=== PATIENT | female | born 1960 | race Caucasian/White ===

== ENCOUNTER 2018-06-26 01:26 | Outpatient (CLI) | payer OTHER, SELFPAY ==
[2018-06-26 10:11] LABS: HCT 39.1 % (36.0-46.0); Mean Corp. HGB Concentration 33.2 g/dL (32.0-36.0); Mean Corpuscular Hemoglobin 27.6 pg (27.0-33.0); Mean Platelet Volume 10.7 fL (8.0-11.0); Platelet Count 279 x1000/uL (130-400); RBC 4.71 m/cumm (4.00-5.20); RBC Distribution Width 13.3 % (11.7-14.6); White Blood Cell Count 5.17 k/cumm (4.4-10.8)
[2018-06-26 11:18] LABS: ALT 39 U/L (12-78); AST 26 U/L (15-37); Albumin 3.7 g/dL (3.4-5.0); Alkaline Phosphatase 80 U/L (46-116); Anion Gap 7.7 mmol/L (3-11); BUN 16 mg/dL (7-18); Bilirubin, Total 0.3 mg/dL (0.2-1.0); CO2 30.3 mmol/L (21.0-32.0); CREATININE 0.99 mg/dL (0.55-1.02); Calcium 9.4 mg/dL (8.5-10.1); Chloride 103 mmol/L (98-107); Cholesterol 239 mg/dL (50-200); Estimated GFR 57.41 (mL/min/1.73m2); Glucose 109 mg/dL (70-100); HDL Cholesterol 74 mg/dL (40-60); LDL CHOLESTEROL 149 mg/dL (<100); Potassium 4.6 mmol/L (3.5-5.1); Sodium 141 mmol/L (136-145); Total Protein 6.6 g/dL (6.4-8.2); Triglyceride 72 mg/dL (30-150)
[2018-06-28 06:41] LABS: COMMENT (LAB VIEW ONLY) 93.86 mg/dL; Microalb ug/mg Crea 9.9 ug/mg Cr
[2018-06-28 15:41] LABS: Hemoglobin A1C 8.5 % (4.5-6.2)
== END 2018-06-26 01:46 ==
PROVIDERS: PCP Nurse Practitioner; Visit Provider Nurse Practitioner
DX: E78.5 Hyperlipidemia, unspecified (principal); E11.65 Type 2 diabetes mellitus with hyperglycemia
CPT/HCPCS: 36415; 80053; 80061; 83721; 85027; 82043; 82570; 83036

== ENCOUNTER 2018-11-04 00:43 | Outpatient (CLI) | payer OTHER, SELFPAY ==
--- NOTE | 2018-11-04 15:30 | DI.MAMMO_ITS ---
SYMPTOM/DIAGNOSIS: FAMILY HISTORY BREAST CANCER BILATERAL SCREENING MAMMOGRAM: Comparison is made with exams from 2015 and 2018. The breasts are composed mainly of fatty density tissue. There is a stable area of nodularity in the left breast. No suspicious masses or suspicious microcalcifications or changes are seen. IMPRESSION: Category 2, negative mammogram with benign findings. Yearly screening mammography is recommended. Breast density category A. MQSA ASSESSMENT OF FINDINGS: Negative with benign findings. Category 2. Patient will receive a letter notifying them of these results. BI-RAD category A. The breasts are almost entirely fatty.
== END 2018-11-04 01:03 ==
PROVIDERS: PCP Nurse Practitioner; Visit Provider Nurse Practitioner
DX: Z12.31 Encounter for screening mammogram for malignant neoplasm of breast (principal); Z80.3 Family history of malignant neoplasm of breast
CPT/HCPCS: 77063; 77067

== ENCOUNTER 2019-05-20 09:07 | Day surgery (SDC) | payer OTHER, SELFPAY ==
[2019-05-20 09:11] VITALS: BP 106/75; PULSE 80; RESP 18; TEMP 36.7; O2SAT 99
[2019-05-20] MEDS: Lactated Ringers 1,000 ML 80 ML IV (09:38)
--- NOTE | 2019-05-20 11:05 | W.PM.HP.N ---
Date of service: 05/20/19 Time of Service: 11:05 Assessment and Plan Assessment and plan (1) Colon cancer screening: Status: Acute Assessment and plan: I advised colonoscopy. The procedure was described including the risks of perforation with need for surgery or bleeding. Prep instructions discussed. Patient agrees to proceed. History of Present Illness Narrative: 59 y/o female with history of Type 1 DM presents for her first screening colonoscopy. She denies a family history of colon cancer. She denies any changes in bowel habits including bloody or black tarry stools, diarrhea or constipation. She denies constitutional symptoms. Denies use of marijuana or any other recreational or illegal drugs. She reports her average fasting blood sugars are 143. Her last HbA1c 8.1 on 12/30/18. She denies chest pain, palpitations, dyspnea or dyspnea with exertion. She participates in aerobic exercise 3-6x/wk for 30-60 mins. She denies prior history or family history of adverse reactions or complications with anesthesia. She denies having any metal implanted in her body. Review of Systems All systems reviewed & are unremarkable except as noted in HPI and below PFSH Medical History Diabetes mellitus (Chronic) Type I Eczema (Acute) Surgical History History of hysterectomy (Chronic) Tubal Ligation, Laparoscopic (04/13/01) Family History Mother Essential hypertension Diabetes Depression Heart disease Hyperlipidemia Thyroid disorder Social History Smoking/Tobacco Use Status: Former Tobacco Use Quit Date: 04/13/83 Alcohol Intake: current Alcohol Intake frequency: a few times a week Alcohol type: wine Drug use: Never Substance use type: does not use Do you feel safe at home: Yes Do you feel safe in your relationship?: Yes Meds Home Medications and Allergies Home Medications Medication Instructions Recorded Confirmed Type ibuprofen 200 mg PO PRN PRN 08/20/12 05/20/19 History loratadine 10 mg PO PRN PRN 08/20/12 05/20/19 History metformin 500 mg tablet,extended See Rx Instructions PO BID #360 tab 07/05/18 05/20/19 Rx release 24hr pen needle, diabetic 31 gauge x #200 each 10/11/18 04/14/19 Rx 5/16 blood sugar diagnostic #150 strip 01/20/19 04/14/19 Rx insulin aspart U-100 100 unit/mL 12 unit SC QID ml 02/28/19 05/20/19 History (3 mL) subcutaneous pen insulin glargine [Lantus Solostar 20 unit SUB-Q HS MDD 25 05/04/19 05/20/19 History U-100 Insulin] Allergies Allergy/AdvReac Type Severity Reaction Status Date / Time Sulfa (Sulfonamide Allergy rash, fever Verified 05/20/19 09:13 Antibiotics) topiramate AdvReac Unknown MENTAL Verified 05/20/19 09:13 CHANGES, VAGUE Exam Const General: healthy appearing and not in acute distress Nutritional Appearance: well nourished Orientation: oriented x3 HENMT Head: normal to inspection Eyes Sclera: sclerae normal Pupils: PERRL Neck Neck: no lymphadenopathy Resp Effort & Inspection: normal respiratory effort Auscultation: clear to auscultation bilaterally and no wheezes Cardio Rate: regular rate Rhythm: regular rhythm GI Inspection: non-distended Palpation: soft, no hepatosplenomegaly, no hernias and nontender Skin General skin exam: no rashes or lesions noted Neuro General: alert Cognition: normal cognition Extrem General: normal to inspection Psych Affect: normal affect Attitude: cooperative Results Last Vital Signs Temp 98.1 F 05/20/19 09:11 Pulse 80 05/20/19 09:11 Resp 18 05/20/19 09:11 BP 106/75 05/20/19 09:11 Pulse Ox 99 05/20/19 09:11
--- NOTE | 2019-05-20 11:56 | W.PM.DSUDISC ---
Discharge Plan Disposition Patient Disposition: HOME Condition: Good Discharge Details Reason For Visit: Colonoscopy Attending Provider: Magdalena Pimentel Primary Care Provider: Danae Dela Cruz Home Meds and New Rx's Prescriptions: Continued insulin aspart U-100 [Novolog Flexpen U-100 Insulin] 100 unit/mL (3 mL) insulin pen 12 unit SC QID RF: 0 ibuprofen 200 MG tablet 200 mg PO PRN PRNRF: 0 loratadine 10 MG tablet 10 mg PO PRN PRNRF: 0 metformin 500 mg tablet extended release 24hr See Rx Instructions PO BID Qty: 360 RF: 3 (DME) pen needle, diabetic [Pen Needle] 31 gauge x 5/16 needle 1 ea Sub-Q TID Qty: 200 RF: 12 (DME) FreeStyle Lite Strips Strip 1 ea Miscellaneous BID Qty: 150 RF: 11 Lantus Solostar U-100 Insulin 100 unit/mL (3 mL) insulin pen 20 unit Sub-Q HS MDD 25 RF: 0 Discharge Instructions Additional Instructions: Findings: Your colonoscopy was normal. Follow up: Plan for routine screening in 10 years or sooner if symptoms arise. Please call if you develop: fevers >101.5 Nausea or Vomiting Abdominal pain that is not transient DAY SURGERY UNIT POST COLONOSCOPY INSTRUCTIONS 1. Because there will be medication in your system for the next 24 hours, you may feel a little sleepy. Your coordination will be affected. Therefore: a. Do not drive or operate dangerous equipment for 24 hours. b. Do not drink alcohol beverages for 24 hours (not even beer). c. Plan to go home and rest for the day. 2. Generally there are no restrictions on your activity after a day or so has gone by, but you may feel a bit fatigued for a few days. 3 After you arrive home you may have a light meal and return to a normal diet as you can tolerate it without feeling sick to your stomach. 4. After surgery, you may feel pain or discomfort. This should be only transient, but if it persists please contact your doctor. 5. If there are any questions regarding the findings of your procedure, please feel free to contact your doctor. 6. If you are unable to contact your doctor with a problem, contact the hospital at [phone]. 7. Continue all your regular medications unless directed otherwise. I understand the above instructions and have no questions. Signature of Patient or Responsible Adult Escort Date/Time Name of Responsible Adult Escort Signature of Nurse Date/Time Activity:: Activity as Tolerated Diet:: As Tolerated Discharge Orders Discharge Orders: Discharge Order (Routine); Ordered 05/20/19 Ordered By: Magdalena Pimentel DS: Diagnosis Discharge Diagnosis (1) Colon cancer screening: Status: Acute
[2019-05-20 12:16] VITALS: PULSE 78; RESP 18; TEMP 36.7; O2SAT 95
--- NOTE | 2019-05-20 15:10 | ROE_ITS ---
DATE OF PROCEDURE: May 20, 2019 PREOPERATIVE DIAGNOSIS: Screening. POSTOPERATIVE DIAGNOSIS: Normal colon. PROCEDURE: Colonoscopy. SURGEON: Magdalena Pimentel M.D. ANESTHESIA: General. INDICATIONS: This is a 59-year-old woman who presents for her first screening colonoscopy. She is a symptomatic and has no family history of colon cancer. PROCEDURE: She was placed in the left Burton position. Propofol was titrated to sedation. Digital re ctal examination revealed no abnormalities. The scope was advanced to the cecum without difficulty. The ileocecal valve and appendiceal orifice were clearly identified. Her prep was good. The scope was slowly withdrawn with no abnormalities seen within the ascending, transverse, descending, sigmoid colon or rectum, including on retroflex view. She tolerated the procedure well and was stable to re covery. She will need a follow-up screening again in ten years or sooner if symptoms indicate. cc: Danae Dela Cruz N.P.
== END 2019-05-20 12:33 | disposition home or self-care (01) ==
PROVIDERS: PCP Nurse Practitioner; Visit Provider Surgery
PROC: 0DJD8ZZ Inspection of Lower Intestinal Tract, Via Natural or Artificial Opening Endoscopic (ICD-10-PCS; CPT 45378; principal; 2019-05-20 10:30)
DX: Z12.11 Encounter for screening for malignant neoplasm of colon (principal); E10.9 Type 1 diabetes mellitus without complications; Z79.4 Long term (current) use of insulin
CPT/HCPCS: 45378; NC

== ENCOUNTER 2019-11-22 01:28 | Outpatient (CLI) | payer OTHER, SELFPAY ==
--- NOTE | 2019-11-22 08:30 | DI.MAMMO_ITS ---
EXAM: MG MAMMO SCREENING CLINICAL HISTORY: screening,Z12.39 TECHNIQUE: Bilateral full field digital CC and MLO mammographic images were obtained with 3D tomosyn thesis and utilizing computer aided detection (CAD). COMPARISON: Available for comparison. FINDINGS: Masses/Architectural Distortion: Stable bilateral nodularity. Microcalcifications: No suspicious pleomorphic-type are seen. Skin Thickening/Nipple Retraction: None. IMPRESSION: 1. No significant interval change with no specific features of malignancy noted. 2. Unless there is more urgent need, screening mammography is recommended, as per [employer] guidelines. BI-RADS Category 2 - Benign Findings Breast Density - Category A - Almost entirely fatty A negative radiographic report should not delay biopsy if a dominant or clinically suspicious mass is present. Up to ten percent of cancers are not identified on mammography. A negative report may reinforce clinical impression. Adenosis and dense breasts may obscure an underlying neoplasm. False positive reports average 6 to 10%. Patient will receive a letter notifying them of these results.
== END 2019-11-22 01:48 ==
PROVIDERS: PCP Nurse Practitioner; Visit Provider Nurse Practitioner
DX: Z12.31 Encounter for screening mammogram for malignant neoplasm of breast (principal)
CPT/HCPCS: 77063; 77067

== ENCOUNTER 2020-05-01 03:30 | Outpatient (CLI) | payer OTHER, SELFPAY ==
[2020-05-01 07:55] LABS: Bilirubin Negative (Negative); Blood Small (Negative); Clarity Clear (Clear); Glucose Negative (Negative); Ketones Negative (Negative); Leukocyte Esterase Negative (Negative); Nitrite Negative (Negative); Urobilinogen 0.2 EU/dL (Up TO 0.2)
[2020-05-01 08:05] LABS: Hemoglobin A1C 7.8 % (<5.7)
[2020-05-01 08:05] LABS: COMMENT (LAB VIEW ONLY) 44.33 mg/dL; Microalb ug/mg Crea 18.7 ug/mg Cr
[2020-05-01 08:08] LABS: ALT 34 U/L (14-59); AST 19 U/L (15-37); Alkaline Phosphatase 73 U/L (46-116); BUN 15 mg/dL (7-18); Bilirubin, Total 0.3 mg/dL (0.2-1.0); Calcium 9.1 mg/dL (8.5-10.1); Calculated LDL 148 mg/dL (<100); Chloride 101 mmol/L (98-107); Cholesterol 250 mg/dL (<200); Estimated GFR 56.37 (mL/min/1.73m2); Glucose 196 mg/dL (74-106); HDL Cholesterol 83 mg/dL (40-60); Potassium 4.1 mmol/L (3.5-5.1); Sodium 138 mmol/L (136-145); Total Protein 6.9 g/dL (6.4-8.2); Triglyceride 98 mg/dL (<150)
[2020-05-01 08:08] LABS: Bacteria Many HPF (Negative); C & S Indicated? C&S Done As Ordered; Casts Negative LPF (Negative); Crystals Negative HPF (Negative); Epithelial Cells Rare HPF (Negative); Mucus Trace (Negative)
[2020-05-01 10:44] LABS: HCT 38.4 % (36.0-46.0); HGB 12.6 g/dL (11.2-15.7); MCH 27.5 pg (27.0-33.0); MCHC 32.8 % (32.0-36.0); MCV 83.7 fL (80-95); MPV 10.9 fL (8.0-11.0); Platelet Count 287 10^3/uL (130-400); RBC 4.59 10^6/uL (3.93-5.22); RDW 12.8 % (11.7-14.6); RDW-SD 38.7 fL; WBC 5.96 10^3/uL (4.4-10.8)
== END 2020-05-01 03:50 ==
PROVIDERS: PCP Nurse Practitioner; Visit Provider Nurse Practitioner
DX: E10.9 Type 1 diabetes mellitus without complications (principal); E78.5 Hyperlipidemia, unspecified; N89.8 Other specified noninflammatory disorders of vagina
CPT/HCPCS: 36415; 80053; 80061; 85027; 87077; 81003; 81015; 82043; 82570; 83036; 87086; 87186

== ENCOUNTER 2020-08-09 02:12 | Outpatient (CLI) | payer OTHER, SELFPAY ==
[2020-08-09 08:55] LABS: Bilirubin Negative (Negative); Blood Negative (Negative); Clarity Clear (Clear); Glucose Negative (Negative); Ketones Negative (Negative); Leukocyte Esterase Negative (Negative); Nitrite Negative (Negative); Specific Gravity 1.015 (1.005-1.025); Urobilinogen 0.2 EU/dL (Up TO 0.2)
== END 2020-08-09 02:13 | disposition home or self-care (01) ==
LOC: LBO 02:12
PROVIDERS: PCP Nurse Practitioner; Visit Provider Nurse Practitioner
DX: N89.8 Other specified noninflammatory disorders of vagina (principal); R82.998 Other abnormal findings in urine
CPT/HCPCS: 87077; 81003; 87086; 87186

== ENCOUNTER 2020-11-13 16:36 | Outpatient (REF) | payer OTHER, SELFPAY | END 2020-11-13 16:37 | disposition home or self-care (01) | LOC: LBN 16:36 | PROVIDERS: PCP Nurse Practitioner; Visit Provider Nurse Practitioner | DX: R82.90 Unspecified abnormal findings in urine (principal) | CPT/HCPCS: 87086 ==

== ENCOUNTER 2020-11-21 03:36 | Outpatient (CLI) | payer OTHER, SELFPAY ==
[2020-11-21 08:02] LABS: HCT 40.3 % (36.0-46.0); MCH 27.1 pg (27.0-33.0); MCHC 32.3 % (32.0-36.0); MPV 10.4 fL (8.0-11.0); Platelet Count 291 10^3/uL (130-400); RDW-SD 39.9 fL; WBC 5.32 10^3/uL (4.4-10.8)
[2020-11-21 08:03] LABS: Bilirubin Negative (Negative); Blood Negative (Negative); Clarity Clear (Clear); Glucose Negative (Negative); Ketones Negative (Negative); Leukocyte Esterase Negative (Negative); Nitrite Positive (Negative); Specific Gravity 1.015 (1.005-1.025); Urobilinogen 0.2 EU/dL (Up TO 0.2); pH 7.5 (5-8)
[2020-11-21 08:17] LABS: Hemoglobin A1C 7.9 % (<5.7)
[2020-11-21 08:21] LABS: Bacteria Moderate HPF (Negative); C & S Indicated? Yes; Casts Negative LPF (Negative); Crystals Negative HPF (Negative); Epithelial Cells Rare HPF (Negative); Mucus Negative (Negative); RBC Negative HPF (0-2); WBC 0-2 HPF (0-5)
[2020-11-21 08:40] LABS: ALT 28 U/L (14-59); AST 18 U/L (15-37); Albumin 3.8 g/dL (3.4-5.0); Alkaline Phosphatase 73 U/L (46-116); Anion Gap 1.9 mmol/L (3-11); BUN 15 mg/dL (7-18); Bilirubin, Total 0.3 mg/dL (0.2-1.0); CO2 31.1 mmol/L (21.0-32.0); Calcium 9.3 mg/dL (8.5-10.1); Calculated LDL 147 mg/dL (<100); Chloride 105 mmol/L (98-107); Cholesterol 247 mg/dL (<200); Estimated GFR 56.37 (mL/min/1.73m2); Glucose 161 mg/dL (74-106); HDL Cholesterol 81 mg/dL (40-60); Potassium 4.2 mmol/L (3.5-5.1); Sodium 138 mmol/L (136-145); Total Protein 6.6 g/dL (6.4-8.2); Triglyceride 95 mg/dL (<150)
== END 2020-11-21 03:37 | disposition home or self-care (01) ==
LOC: LBO 03:36
PROVIDERS: PCP Nurse Practitioner; Visit Provider Nurse Practitioner
DX: E10.9 Type 1 diabetes mellitus without complications (principal); E78.5 Hyperlipidemia, unspecified; E11.9 Type 2 diabetes mellitus without complications; R82.998 Other abnormal findings in urine
CPT/HCPCS: 36415; 80053; 80061; 85027; 87077; 81003; 81015; 83036; 87086; 87186

== ENCOUNTER 2020-12-12 02:01 | Outpatient (CLI) | payer OTHER, SELFPAY ==
--- NOTE | 2020-12-12 08:15 | DI.MAMMO_ITS ---
Exam(s) MAMMO SCREENING EXAM: MAMMO SCREENING CLINICAL HISTORY: screening,Z12.39 TECHNIQUE: Bilateral full field digital CC and MLO mammographic images were obtained with 3D tomosyn thesis and utilizing computer aided detection (CAD). COMPARISON: Available for comparison. FINDINGS: Masses/Architectural Distortion: There is a small focal asymmetry in the upper posterior left breast not present on the prior examination. There are stable bilateral breast nodules present. Microcalcifications: No suspicious pleomorphic-type are seen. Skin Thickening/Nipple Retraction: None. IMPRESSION: 1. New small focal asymmetry in the upper posterior left breast on the MLO view. 2. Spot compression views requested for further evaluation. BI-RADS Category 0 - Assessment Incomplete: Need additional imaging evaluation Breast Density - Category B - Scattered areas of fibroglandular density Breast density category C or D implies that the patient has dense breast tissue. Dense breast tissue is very common and is not abnormal but dense breast tissue can make it harder to find cancer on a ma mmogram. Also, dense breast tissue may increase their breast cancer risk. This information about the result of the mammogram report was provided to the patient to raise their awareness. Use this report when you speak with the patient about their risks for breast cancer, which includes their family hist ory. At that time, you may recommend for more screening tests (Ultrasound or MRI) as they might be us eful based on their risk. A negative radiographic report should not delay biopsy if a dominant or clinically suspicious mass is present. Up to ten percent of cancers are not identified on mammography. A negative report may reinforce clinical impression. Adenosis and dense breasts may obscure an underlying neoplasm. False positive reports average 6 to 10%. Patient will receive a letter notifying them of these results.
== END 2020-12-12 02:21 ==
PROVIDERS: PCP Nurse Practitioner; Visit Provider Nurse Practitioner
DX: Z12.31 Encounter for screening mammogram for malignant neoplasm of breast (principal); R92.8 Other abnormal and inconclusive findings on diagnostic imaging of breast
CPT/HCPCS: 77063; 77067

== ENCOUNTER 2020-12-31 00:44 | Outpatient (CLI) | payer OTHER, SELFPAY ==
--- NOTE | 2020-12-31 | DI.MAMMO_ITS ---
Exam(s) MG MAMMO SCREEN CALL BACK UNI EXAM: MAMMO SCREEN CALL BACK UNI-left CLINICAL HISTORY: F/U MAMMO, NEW FOCAL ASYMMETRY UPPER POST LT BREAST. TECHNIQUE: Unilateral spot mammographic images obtained with 3D tomosynthesisand utilizing computer aided detection (CAD). . COMPARISON: Prior mammograms were reviewed. This additional imaging was performed due to findings described on the recent screening mammogram of 12/12/2020. FINDINGS: Additional mammographic views performed todayrenders this area less concerning and similar in appeara nce to prior mammograms. IMPRESSION: Benign findings. No radiographic evidence of malignancy in left breast. The patient was informed of these findings and recommendations prior to leaving the department today. BI-RADS Category 2 - Benign Findings Breast Density - Category B - Scattered areas of fibroglandular density Breast density Category C or D implies that the patient has dense breast tissue. Dense breast tissue can make it harder to find cancer on a mammogram. Dense breast tissue is also associated with an incr eased risk of breast cancer. This information about the result of the mammogram report was provided to the patient to raise their awareness. Use this report when you speak with the patient about their risks for breast cancer, which includes their family history. At that time, you may recommend additional screening tests (Ultrasoun d or MRI) as these tests may add significant information. A negative radiographic report should not delay biopsy if a dominant or clinically suspicious mass is present. Up to ten percent of cancers are not identified on mammography. A negative report may reinforce clinical impression. Adenosis and dense breasts may obscure an underlying neoplasm. False positive reports average 6 to 10%. Patient will receive a letter notifying them of these results.
== END 2020-12-31 01:04 ==
PROVIDERS: PCP Nurse Practitioner; Visit Provider Nurse Practitioner
DX: Z12.31 Encounter for screening mammogram for malignant neoplasm of breast (principal); R92.8 Other abnormal and inconclusive findings on diagnostic imaging of breast; N60.82 Other benign mammary dysplasias of left breast
CPT/HCPCS: 77063; 77067

== ENCOUNTER 2021-01-25 02:20 | Outpatient (CLI) | payer OTHER, SELFPAY ==
[2021-01-25 09:13] LABS: Hemoglobin A1C 7.9 % (<5.7)
[2021-01-25 09:50] LABS: Estimated GFR 56.37 (mL/min/1.73m2)
[2021-01-25 09:52] LABS: Microalb ug/mg Crea 2.3 ug/mg Cr
== END 2021-01-25 02:21 | disposition home or self-care (01) ==
LOC: LBO 02:20
PROVIDERS: PCP Nurse Practitioner; Visit Provider Nurse Practitioner Family
DX: E10.65 Type 1 diabetes mellitus with hyperglycemia (principal)
CPT/HCPCS: 36415; 82043; 82565; 82570; 83036

== ENCOUNTER 2021-02-05 03:26 | Outpatient (CLI) | payer OTHER, SELFPAY ==
[2021-02-05 11:22] LABS: Source Nasal/Nares
[2021-02-05 13:46] LABS: COVID-19 PCR Negative (Negative)
== END 2021-02-05 03:27 | disposition home or self-care (01) ==
LOC: LBO 03:26
PROVIDERS: PCP Nurse Practitioner; Visit Provider Surgery
DX: Z20.822 Contact with and (suspected) exposure to COVID-19 (principal); Z01.818 Encounter for other preprocedural examination
CPT/HCPCS: 87635

== ENCOUNTER 2021-02-06 06:10 | Day surgery (SDC) | payer OTHER, SELFPAY ==
[2021-02-06] VITALS (8 sets, daily range): BP systolic 102–139; BP diastolic 53–87; PULSE 60–74; RESP 12–23; TEMP 36.1–36.4; TEMPC 36.3; O2SAT 98–100; BMI 30.1
--- NOTE | 2021-02-06 06:30 | HPE_ITS ---
Date of service: 02/06/21 Time of Service: 06:31 Assessment and Plan Assessment and plan (1) Biliary colic: Status: Acute Assessment and plan: Yasmine Ramos is a 60-year-old female who clinically is having biliary colic. Her episodes have become more frequent. We discussed laparoscopic cholecystectomy as well as the risks and benefits. Her ultrasound does not show any inflammation at this point time and her biliary system is normal. This is certainly not a surgery that has to be done emergent. She does think that she would like to go ahead with surgery as her episodes are becoming more frequent. She will look at her work schedule and give us a call back to schedule her surgery. Risks, benefits, complications were reviewed with the patient in the office. Complications include but are not limited to bleeding, infection, injury to stomach, small bowel and large bowel, injury to the pancreas, injury to the common bile duct necessitating drainage and referral to tertiary center for r epair, bile leak, adverse reactions to the medications, complications of intubation including a sore throat or injury to the uvula, PR, stroke and even . Questions were entertained and answered to her satisfaction and she wished to proceed. No guarantees were given or implied. Laparoscopic cholecystectomy with possible intraoperative cholangiogram History of Present Illness Narrative: Yasmine is here today because she has been having some right upper quadrant/upper abdominal discomfort for years. Over the last few months if has become more frequent. She describes the pain as pressure. It is not always related to food. She did have an ultrasound which showed a 1.6 cm stone in the neck of the gallbladder. It was mobile. There were no signs of inflammation on the ultrasound and her biliary system looked normal. I suspect that because her stone is immobile that this is why she is having pain on and off. Sometimes the pain can last 3 to 4 hours. She has not had any nausea or vomiting. She has not had any changes in bowel habits. Her past medical history is significant for type 1 diabetes. She started out with a hemoglobin A1c of over 12 and has been able to bring it down to 7.6. She is quite strict with her diet and has been increasing her exercise. She does not have any chest pain or shortness of breath with exertion. NO new changes in her health since she was seen in the office Review of Systems Cardiovascular Cardiovascular: Denies chest pain, Denies chest pain at rest, Denies irregular heart rhythm, Denies dyspnea and Denies dyspnea on exertion Respiratory Respiratory: Denies cough, Denies dyspnea and Denies dyspnea on exertion Gastrointestinal Gastrointestinal: Reports as per HPI, Denies dyspepsia and Denies heartburn Genitourinary Genitourinary: Denies dysuria, Denies urinary incontinence and Denies urinary urgency Endocrine Endocrine: Reports system reviewed and no additional complaints, except as documented Hematologic/Lymphatic Hematologic/Lymphatic: Denies easy bruising and Denies lymphadenopathy [facility] Medical History (Updated 02/06/21 @ 06:33 by Juju Peters MD) Benign paroxysmal positional vertigo (08/06/11) Diabetes mellitus Type I Dyslipidemia (03/14/14) declines statin rx (indicated for diabetes, but CV risk 3.4%/10 yrs; 39% lifetime) Eczema Paroxysmal atrial tachycardia (08/06/11) Sinusitis Statin declined Uterine leiomyoma (08/06/11) Surgical History History of hysterectomy Tubal Ligation, Laparoscopic (04/13/01) Family History Mother Essential hypertension Diabetes Depression Heart disease Hyperlipidemia Thyroid disorder Social History Smoking/Tobacco Use Status: Former Tobacco Use Quit Date: 04/13/83 Smoking risk assessment performed?: Yes Alcohol Intake: current Alcohol Intake frequency: a few times a week Alcohol type: wine Drug use: Never Substance use type: does not use Do you feel safe at home: Yes Do you feel safe in your relationship?: Yes Meds Allergies and Home Medications Allergies Allergy/AdvReac Type Severity Reaction Status Date / Time Sulfa (Sulfonamide Allergy rash, fever Verified 02/06/21 06:30 Antibiotics) topiramate AdvReac Unknown MENTAL Verified 02/06/21 06:30 CHANGES, VAGUE Home Medications Medication Instructions Recorded Confirmed Type ibuprofen 200 mg PO PRN PRN 08/20/12 02/05/21 History loratadine 10 mg PO PRN PRN 08/20/12 02/05/21 History blood sugar diagnostic #150 strip 02/07/20 12/21/20 Rx metformin 500 mg tablet,extended 500 mg PO BID #360 tab 05/07/20 02/05/21 Rx release 24hr insulin glargine 100 unit/mL (3 20 unit SUB-Q HS #3 ml MDD 25 06/21/20 02/05/21 Rx mL) subcutaneous pen pen needle, diabetic 31 gauge x #200 each 11/13/20 12/21/20 Rx 08/26 insulin aspart U-100 [Novolog 1 - 6 unit SC QID MDD 50u 02/05/21 02/05/21 History Flexpen U-100 Insulin] Exam Const General: healthy appearing and comfortable Resp Effort & Inspection: normal respiratory effort Auscultation: clear to auscultation bilaterally Cardio Rate: regular rate Rhythm: regular rhythm Heart Sounds: no click, no gallops and no murmurs Results Last Vital Signs Temp 97.5 F L 02/06/21 06:21 Pulse 74 02/06/21 06:21 Resp 16 02/06/21 06:21 BP 134/69 02/06/21 06:21 Pulse Ox 99 02/06/21 06:21
--- NOTE | 2021-02-06 06:33 | ROE_ITS ---
Date of service: 02/06/21 Time of Service: 08:10 Operative Note Operative Note DATE OF PROCEDURE: 02/06/21 PRE-OP DIAGNOSIS: Biliary colic POST-OP DIAGNOSIS: same PROCEDURE: Laparoscopic Cholecystectomy SURGEON: Juju Peters PLANNING ASSISTANT: Yolanda Bergman ANESTHESIA TYPE: General LMA/ETT (Hiram Guthrie CRNA) Refer to Anesthesia Record ESTIMATED BLOOD LOSS: 15 PATHOLOGY: other (Gallblader and contents) COMPLICATIONS: None Patient was transported to: PACU Patient's condition: stable Implants: None Indications: Yasmine Ramos is a 60-year-old female who clinically is having biliary colic. Her episodes have become more frequent. We discussed laparoscopic cholecystectomy as well as the risks and benefits. Her ultrasound does not show any inflammation at this point time and her biliary system is normal. This is certainly not a surgery that has to be done emergent. She does think that she would like to go ahead with surgery as her episodes are becoming more frequent. She will look at her work schedule and give us a call back to schedule her surgery. Risks, benefits, complications were reviewed with the patient in the office. Complications include but are not limited to bleeding, infection, injury to stomach, small bowel and large bowel, injury to the pancreas, injury to the common bile duct necessitating drainage and referral to tertiary center for repair, bile leak, adverse reactions to the medications, complications of intubation including a sore throat or injury to the uvula, NV, stroke and even . Questions were entertained and answered to her satisfaction and she wished to proceed. No guarantees were given or implied. Laparoscopic cholecystectomy with possible intraoperative cholangiogram Findings: One large stone mild inflammation Procedure Description: After informed consent was obtained the patient was brought to the operating room, placed in a supine position and monitors were applied. SCDs were applied to her lower extremities and she was placed under general anesthesia and intubated without difficulty. Her abdomen was then prepped and draped in a sterile fashion using ChloraPrep. At this point a timeout was done and the patient's name, date of , procedure type, allergies to medications, metal in her body, antibiotic and DVT prophylaxis, and fire risk was assessed. At this point Exparel mixed 50/50 with 0.25% Bupivocaine was injected just above the umbilicus into the dermis and subcutaneous tissue. A 5 mm incision was made with an 11 blade. The skin next to the incision was grasped with penetrating towel clamps and while pulling up on the skin a 5 mm port was placed under direct visualization. The abdomen was insuflated and then 3 more ports were placed. A 12 mm port was placed in the subxiphoid area and two 5 mm ports were placed in the right upper quadrant. The liver was inspected and looked normal. The patient's bed was then turned to the left and her head was brought up. The gallbladder was grasped at the body and pushed towards the right shoulder, this allowed me to visualize the neck of the gallbladder. The neck was grasped and pulled towards the right flank and down allowing me to visualize the lymph node. Using a [place] dissector with cautery the lymph node, and some fat was gently dissected away from the gallbladder. The cystic duct was identified it was normal in size. The duct was dissected 360 degrees using the [place] dissector in order for me to visualize its entrance into the gallbladder. Liver was noted behind it. There were no other structures right behind. Critical view was achieved. 3 clips were placed one proximal and 2 distal and the cystic duct was cut. The cystic artery was then identified and dissected 360 degrees. It was located just medial to the cystic duct. It was visualized going into the gallbladder. Once dissected 3 more clips were placed one proximal and 2 distal and the artery was cut. There was a acessory vessel noted and this was clipped as well and cut. Using the hook dissector the gallbladder was then dissected away from the liver bed and placed into an Endo Catch bag and pulled through the 12 mm port site. The 12 mm port was placed back into the abdomen under direct visualization. The liver bed was inspected no bleeding was noted. 20 cc of 0.25% Bupivocaine was injected above the liver to help with postoperative shoulder pain. The 12 mm and the 2 right upper quadrant ports were removed under direct visualization and no bleeding was noted from the fascia. The abdomen was deflated completely and lastly the umbilical port was removed. The skin was cleaned and the incisions were closed with 4-0 Vicryl. The skin was dried and skin affix was applied over the closed incisions. Needle, instrument and sponge counts were correct at the end of the case. At this point the patient was woken up, extubated and taken back to recovery in stable condition. There were no immediate complications.
--- NOTE | 2021-02-06 06:35 | PDOC.DSDIS_ITS ---
Discharge Plan Disposition Patient Disposition: HOME Condition: Good Discharge Details Reason For Visit: Laparoscopic Cholecystectomy Attending Provider: Juju Peters Primary Care Provider: Danae Dela Cruz Home Meds and New Rx's Prescriptions: New oxycodone 5 mg tablet 5 mg PO Q6H PRNQty: 14 RF: 0 Continued (DME) pen needle, diabetic [Pen Needle] 31 gauge x 5/16 needle 1 ea Sub-Q TID Qty: 200 RF: 12 ibuprofen 200 MG tablet 200 mg PO PRN PRNRF: 0 loratadine 10 MG tablet 10 mg PO PRN PRNRF: 0 (DME) FreeStyle Lite Strips Strip 1 ea Miscellaneous BID Qty: 150 RF: 11 metformin 500 mg tablet extended release 24hr 500 mg PO BID Qty: 360 RF: 3 Lantus Solostar U-100 Insulin 100 unit/mL (3 mL) insulin pen 20 unit Sub-Q HS MDD 25 Qty: 3 RF: 12 insulin aspart U-100 [Novolog Flexpen U-100 Insulin] 100 unit/mL (3 mL) insulin pen 2 - 12 unit SC QID MDD 50u RF: 0 acetaminophen 500 mg Tablet 500 mg PO Q6H PRNRF: 0 Discharge Instructions Instructions: Laparoscopic Cholecystectomy (DC) Additional Instructions: Activity at Home after surgery: 1. Make sure you walk outside at least 4 times per day 2. You should be able to climb a flight of stairs 3. No driving while in pain or taking pain medications 4. No strenuous activity or heavy lifting for 2 weeks (laparoscopic surgery) Diet, Nutrition, & wound healin. Avoid alcohol until after you are recovered from your surgery 2. Make sure to eat plenty of lean protein (meat, fish, eggs, cottage cheese, beans) 3. Eat a variety of fruits and vegetables. Eat plenty of high fiber foods to avoid constipation. 4. Drink plenty of liquids to stay hydrated and avoid constipation Pain Medications: 1. Tylenol 650mg every 6 hours as needed and Ibuprofen 600 mg every 6 hours as needed. You may alternate between the 2 medications every 3 hours 2. If a narcotic has been prescribed take as directed only for breakthrough pain For Constipation: 1. Take Milk of Magnesia or MiraLax as needed for constipation Other: 1. You may shower daily. Do not scrub the incisions 2. Do not soak the incisions for 1 week 3. You may alternate ice and heat as needed for pain and swelling Wound Care: 1. Keep the incisions clean and dry Please call our office if you develop: 1. Fevers >101.5 2. Nausea or Vomiting 3. Worsening pain 4. Redness and thick discharge from the wounds If after hours please call the Hospital at and ask to speak to the on-call surgeon Referrals: Juju Peters MD [ [facility] STAFF PHYSICIAN] - Activity:: as above Shower/Bathe:: 24 hours Diet:: low fat Discharge Orders Discharge Orders: Discharge Order (Routine); Ordered 02/06/21 Ordered By: Juju Peters DS: Diagnosis Discharge Diagnosis (1) Biliary colic: Status: Acute
[2021-02-06] MEDS: Lactated Ringers 1,000 ML 80 ML IV (06:52)
[2021-02-06] MEDS: Celecoxib 200 MG CAP PO (07:00)
--- NOTE | 2021-02-06 07:09 | W.ANESPRE ---
General Info Date of Service Date Performed: 02/06/21 Height: 5 ft 2 in Weight: 74.8 kg Body Mass Index (BMI): 30.1 Surgical Procedure: Operation Date: 02/06/21 07:40 Proposed Procedures Side Surgeon p Cholecystectomy Laparoscopic Juju Peters MD Meds Allergies and Home Medications Allergies Allergy/AdvReac Type Severity Reaction Status Date / Time Sulfa (Sulfonamide Allergy rash, fever Verified 02/06/21 06:30 Antibiotics) topiramate AdvReac Unknown MENTAL Verified 02/06/21 06:30 CHANGES, VAGUE Home Medication Medication Instructions Recorded ibuprofen 200 mg PO PRN PRN 08/20/12 loratadine 10 mg PO PRN PRN 08/20/12 blood sugar diagnostic #150 strip 02/07/20 metformin 500 mg tablet,extended 500 mg PO BID #360 tab 05/07/20 release 24hr insulin glargine 100 unit/mL (3 20 unit SUB-Q HS #3 ml MDD 25 06/21/20 mL) subcutaneous pen pen needle, diabetic 31 gauge x #200 each 11/13/2008/26 insulin aspart U-100 [Novolog 2 - 12 unit SC QID MDD 50u 02/05/21 Flexpen U-100 Insulin] acetaminophen 500 mg PO Q6H PRN 02/06/21 Current Visit Medications: Current Medications Generic Name Dose Route Start Last Admin Trade Name Freq PRN Reason Stop Dose Admin Celecoxib 200 mg 02/06/21 06:00 02/06/21 07:00 Celecoxib 200 Mg Cap PO 03/07/21 23:59 200 mg PREOP REMY Administration Ringer's Solution 1,000 mls @ 80 mls/hr 02/06/21 06:00 02/06/21 06:52 IV 03/07/21 23:59 80 mls/hr INFUSION ERMY Administration Cefazolin Sodium/Dextrose 2 gm in 50 mls @ 100 mls/hr 02/06/21 06:00 Ancef Duplex IVPB 03/07/21 23:59 PREOP REMY Ondansetron HCl 4 mg/ Sodium 52 mls @ 200 mls/hr 02/06/21 06:36 Chloride IVPB Q6H PRN PRN IV Miscellaneous Supplies 1 each 02/06/21 06:00 Iv Access IV 03/07/21 23:59 DIRECTED REMY Oxycodone HCl 5 mg 02/06/21 06:36 Oxycodone 5 Mg Tab PO Q3H PRN PRN Pain Sodium Chloride 0 ml 02/06/21 06:00 Normal Saline Flush 10 Ml Syr IV 03/07/21 23:59 PRN PRN Sodium Chloride 0 ml 02/06/21 06:00 Normal Saline 10 Ml Vial IJ 03/07/21 23:59 DIRECTED PRN Sterile Water 0 ml 02/06/21 06:00 Water,Injection,Sterile 10 Ml Vial IJ 03/07/21 23:59 DIRECTED PRN PFSH Active Problems Active Problems: Problem Status Onset Code Sinusitis J32.9 Benign paroxysmal positional vertigo 08/06/11 H81.10 Dyslipidemia 03/14/14 E78.5 Uterine leiomyoma 08/06/11 D25.9 Paroxysmal atrial tachycardia 08/06/11 I47.1 Biliary colic K80.50 Abnormal urine R82.90 RUQ pain R10.11 Statin declined Z53.20 Vaginal itching N89.8 Encounter for screening for other viral diseases Z11.59 Colon cancer screening Z12.11 Acquired absence of both cervix and uterus 03/13/15 Z90.710 Headache 08/06/11 R51 Hip pain, right 02/03/17 M25.551 Low back pain 08/06/11 M54.5 Obesity, unspecified 08/06/11 E66.9 Overweight (BMI 25.0-29.9) 08/06/11 E66.3 Type 1 diabetes mellitus E10.9 Medical History Medical History (Updated 02/06/21 @ 06:33 by Juju Peters MD) Benign paroxysmal positional vertigo (08/06/11) Diabetes mellitus Type I Dyslipidemia (03/14/14) declines statin rx (indicated for diabetes, but CV risk 3.4%/10 yrs; 39% lifetime) Eczema Paroxysmal atrial tachycardia (08/06/11) Sinusitis Statin declined Uterine leiomyoma (08/06/11) Surgical History Surgical History History of hysterectomy Tubal Ligation, Laparoscopic (04/13/01) Tobacco Smoking/Tobacco Use Status: Former Tobacco Use Alcohol Alcohol Intake: current Alcohol intake frequency: a few times a week Alcohol type: wine Substance Use Substance use: Never Substance use type: does not use Vital Signs and Lab Results Vital Signs Most Recent Vital Signs in EMR: Most Recent Vital Signs Temp Pulse Resp BP Pulse Ox 36.4 C L 74 16 134/69 99 02/06/21 06:21 02/06/21 06:21 02/06/21 06:21 02/06/21 06:21 02/06/21 06:21 Lab Results Blood Type / Crossmatch: No Data to Display Complete Blood Count: No Data to Display Complete Metabolic Panel: Creatinine 1.0 mg/dL (0.55-1.02) 01/25/21 08:26 01/25/21 Estimated GFR/1.73 m2 56.37 (mL/min/1.73m2) 01/25/21 08:26 01/25/21 Hemoglobin A1c 7.9 % (<5.7) H 01/25/21 08:26 01/25/21 Liver Function Panel: No Data to Display Coagulation Panel: No Data to Display Cardiac Panel: No Data to Display Arterial Blood Gas: No Data to Display Venous Blood Gas: No Data to Display Pancreas Panel: No Data to Display Thyroid Panel: No Data to Display Infectious Disease: Coronavirus (COVID-19)(PCR) Negative (Negative) 02/05/21 08:27 02/05/21 Coronavirus 2019 Source Nasal/Nares 02/05/21 08:27 02/05/21 Blood Cultures: No Data to Display Toxicology Panel: No Data to Display Anesthesia Assessment and Plan Anesthesia History Personal History: No History of Anesthesia Complications Family History: No Family History of Anesthesia Complications Exercise Tolerance Exercise Tolerance: Metabolic Equivalents>4 Pertinent Negatives Pertinent Negatives: No Symptoms of GERD, No Major Cardiovascular Symptoms or Complaints, No Major Pulmonary Symptoms or Complaints and No History of CVA/TIA Cardiac & Pulmonary Exam Cardiac Exam: Normal S1/S2 Heart Sounds Pulmonary Exam: Clear Bilateral Breath Sounds Airway Exam Known Difficult Airway: No Mallampati Class: 3 Mouth Opening: Normal (> 3cm) Thyromental Distance: Greater than 3 cm Neck Range of Motion: Full ROM Neck Circumference: Normal Teeth Condition: Normal Dentition Airway Comments: Crowns back lower both sides ASA Classification ASA Score: ASA 2 Emergency Case?: No NPO Status NPO Status: NPO Clears >2 hours, Solids >8 hours Anesthesia Plan Resuscitation Status: Full Code Anesthesia Technique: General Anesthesia Airway Planned: Endotracheal Tube Monitors Used: Standard Monitors
[2021-02-06] MEDS: ceFAZolin 2 GM/50 ML BAG IVPB (07:29)
[2021-02-06] MEDS: Bupivacaine 0.25% Pres-Free 30 ML VIAL (07:47)
[2021-02-06] MEDS: Bupivacaine LIPOSOME/PF 133 MG/10 ML VIAL IJ (07:47)
--- NOTE | 2021-02-06 08:05 | GB_PTH ---
PATIENT: Yasmine Ramos LOC: [facility] U#:[id number] AGE/SX: 60/F ROOM: RE02/06/[address]: Juju Peters MD : 1960 BED: DIS: 02/06/2021 SPEC #: [id number] RECD: 02/06/21 12:14 STATUS: ASHLEY REHenry #: [id number] DON: 02/06/21 08:[address]: Juju Peters DEPT: Surgical Specimen RECD BY: Clarisa Greenwood ENTERED: 02/06/21 12:15 SP TYPE: GB OTHR DR: Danae Dela Cruz APRN Tissues: 1 - GALLBLADDER Procedures: GROSS AND MICRO LEVEL 3 Comments: [id number]
--- NOTE | 2021-02-06 09:14 | W.ANESPOSTOP ---
Postoperative Evaluation Date, Time and Location Date Performed: 02/06/21 Time Performed: 09:14 Patient Location: Day Surgery Unit Vital Signs Most Recent Imported Vital Signs: Most Recent Vital Signs Temp Pulse Resp BP Pulse Ox 36.1 C L 63 14 139/87 100 02/06/21 08:58 02/06/21 08:58 02/06/21 08:58 02/06/21 08:58 02/06/21 08:58 Most Recent Manually Entered Vital Signs: Adult Blood Pressure: 126/75 Heart Rate: 60 Respirations: 12 Oxygen Saturation (%): 98 Temperature (C): 36.3 C Pain Score (0-10 Scale): 0 Pain Score Most Recent Pain Score: Most Recent Pain Score Pain Level 0 02/06/21 08:58 Assessment Mental Status: Awake (Alert & Oriented to Patient Baseline) Airway and Respiratory Function: Patent airway with normal (patient baseline) respiratory exam Cardiovascular Function: Hemodynamically Stable Hydration Status: Adequately Hydrated Nausea & Vomiting: No Nausea or Vomiting Pain: Pt. Denies Any Pain Peripheral Nerve Block: Patient did not receive a nerve block
== END 2021-02-06 10:28 | disposition home or self-care (01) ==
PROVIDERS: PCP Nurse Practitioner; Visit Provider Surgery
PROC: 0FT44ZZ Resection of Gallbladder, Percutaneous Endoscopic Approach (ICD-10-PCS; CPT 47562; principal; 2021-02-06 07:30)
DX: K80.10 Calculus of gallbladder with chronic cholecystitis without obstruction (principal); E10.9 Type 1 diabetes mellitus without complications; I48.0 Paroxysmal atrial fibrillation
CPT/HCPCS: 47562; 88304; J0131; J0690; J1100; J2001; J2405

== ENCOUNTER 2021-10-31 01:18 | Outpatient (CLI) | payer OTHER, SELFPAY ==
[2021-10-31 08:37] LABS: Hemoglobin A1C 8.3 % (<5.7)
[2021-10-31 08:50] LABS: ALT 29 U/L (14-59); AST 27 U/L (15-37); Albumin 3.7 g/dL (3.4-5.0); Alkaline Phosphatase 77 U/L (46-116); Anion Gap 8.1 mmol/L (3-11); BUN 19 mg/dL (7-18); Bilirubin, Total 0.4 mg/dL (0.2-1.0); CO2 28.9 mmol/L (21.0-32.0); CREATININE 1.1 mg/dL (0.55-1.02); Calcium 9.3 mg/dL (8.5-10.1); Calculated LDL 157 mg/dL (<100); Chloride 100 mmol/L (98-107); Cholesterol 264 mg/dL (<200); Estimated GFR 50.33 (mL/min/1.73m2); Glucose 225 mg/dL (74-106); HDL Cholesterol 78 mg/dL (40-60); Potassium 4.2 mmol/L (3.5-5.1); Sodium 137 mmol/L (136-145); Total Protein 6.9 g/dL (6.4-8.2); Triglyceride 145 mg/dL (<150)
[2021-10-31 09:23] LABS: TSH (W/Ref FT4) 3.68 uIU/mL (0.36-3.74)
== END 2021-10-31 01:19 | disposition home or self-care (01) ==
PROVIDERS: Internal Medicine; PCP Nurse Practitioner; Visit Provider Nurse Practitioner
DX: E10.65 Type 1 diabetes mellitus with hyperglycemia (principal)
CPT/HCPCS: 36415; 80053; 80061; 83036; 84443

== ENCOUNTER → 2021-12-18 03:36 | Outpatient (CLI) | payer OTHER, SELFPAY ==
--- NOTE | 2021-12-18 07:00 | DI.MAMMO_ITS ---
Exam(s) MAMMO SCREENING EXAM: MAMMO SCREENING CLINICAL HISTORY: screening, Z12.39 TECHNIQUE: Bilateral full field digital CC and MLO mammographic images were obtained with 3D tomosyn thesis and utilizing computer aided detection (CAD). COMPARISON: Available for comparison. FINDINGS: Masses/Architectural Distortion: There is a stable nodular density in the upper-outer quadrant of the left breast. Small stable asymmetry are seen in the upper outer quadrants of both breast. No suspi cious masses or areas of architectural distortion are seen. Microcalcifications: No suspicious pleomorphic-type are seen. Skin Thickening/Nipple Retraction: None. IMPRESSION: 1. No significant interval change with no specific features of malignancy noted. 2. Unless there is more urgent need, screening mammography is recommended, as per [place] guidelines. BI-RADS Category 2 - Benign Findings Breast Density - Category B - Scattered areas of fibroglandular density Breast density category C or D implies that the patient has dense breast tissue. Dense breast tissue is very common and is not abnormal but dense breast tissue can make it harder to find cancer on a ma mmogram. Also, dense breast tissue may increase their breast cancer risk. This information about the result of the mammogram report was provided to the patient to raise their awareness. Use this report when you speak with the patient about their risks for breast cancer, which includes their family hist ory. At that time, you may recommend for more screening tests (Ultrasound or MRI) as they might be us eful based on their risk. A negative radiographic report should not delay biopsy if a dominant or clinically suspicious mass is present. Up to ten percent of cancers are not identified on mammography. A negative report may reinforce clinical impression. Adenosis and dense breasts may obscure an underlying neoplasm. False positive reports average 6 to 10%. Patient will receive a letter notifying them of these results.
== END ==
PROVIDERS: PCP Nurse Practitioner; Visit Provider Nurse Practitioner
DX: Z12.31 Encounter for screening mammogram for malignant neoplasm of breast (principal)
CPT/HCPCS: 77063; 77067

== ENCOUNTER 2022-04-17 02:50 | Outpatient (CLI) | payer OTHER, SELFPAY ==
[2022-04-17 11:40] LABS: HCT 39.4 % (36.0-46.0); MCH 27.3 pg (27.0-33.0); MCV 83 fL (80-95); MPV 10.1 fL (8.0-11.0); Platelet Count 265 10^3/uL (130-400); RBC 4.77 10^6/uL (3.93-5.22); RDW 12.7 % (11.7-14.6); RDW-SD 38.5 fL; WBC 5.38 10^3/uL (4.4-10.8)
[2022-04-17 13:00] LABS: Anion Gap 6.9 mmol/L (3-11); BUN 14 mg/dL (7-18); CO2 31.1 mmol/L (21.0-32.0); CREATININE 1.1 mg/dL (0.55-1.02); Calcium 9.6 mg/dL (8.5-10.1); Chloride 99 mmol/L (98-107); Estimated GFR 56.46 (mL/min/1.73m2); Ferritin 68 ng/mL (8-252); Glucose 186 mg/dL (74-106); Potassium 4.1 mmol/L (3.5-5.1); Sodium 137 mmol/L (136-145); TSH (W/Ref FT4) 2.26 uIU/mL (0.36-3.74); Vitamin B12 775 pg/mL (193-986)
== END 2022-04-17 02:51 | disposition home or self-care (01) ==
LOC: LBO 02:51
PROVIDERS: PCP Nurse Practitioner; Visit Provider Nurse Practitioner
DX: E10.9 Type 1 diabetes mellitus without complications (principal); R44.8 Other symptoms and signs involving general sensations and perceptions; R79.9 Abnormal finding of blood chemistry, unspecified; I10 Essential (primary) hypertension
CPT/HCPCS: 36415; 80048; 85027; 82607; 82728; 83036; 84443

== ENCOUNTER → 2023-02-02 02:58 | Outpatient (CLI) | payer OTHER, SELFPAY ==
--- NOTE | 2023-02-02 08:15 | DI.MAMMO_ITS ---
Exam(s) MAMMO SCREENING EXAM: MAMMO SCREENING CLINICAL HISTORY: screening.Z12.39. TECHNIQUE: Bilateral full field digital CC and MLO mammographic images were obtained with 3D tomosyn thesis and utilizing computer aided detection (CAD). COMPARISON: Prior mammograms were reviewed. FINDINGS: There has been no significant change in the appearance and distribution of the fibroglandular tissue. Nodular densities bilaterally are unchanged from at least 2015. There are no new spiculated masses nor malignant appearing microcalcification groups. There is no significant architectural distortion nor skin thickening-retraction. IMPRESSION: Stable benign-appearing findings. No radiographic evidence of malignancy. BI-RADS Category 2 - Benign Findings Breast Density - Category B - Scattered areas of fibroglandular density Breast density Category C or D implies that the patient has dense breast tissue. Dense breast tissue can make it harder to find cancer on a mammogram. Dense breast tissue is also associated with an incr eased risk of breast cancer. This information about the result of the mammogram report was provided to the patient to raise their awareness. Use this report when you speak with the patient about their risks for breast cancer, which includes their family history. At that time, you may recommend additional screening tests (Ultrasoun d or MRI) as these tests may add significant information. A negative radiographic report should not delay biopsy if a dominant or clinically suspicious mass is present. Up to ten percent of cancers are not identified on mammography. A negative report may reinforce clinical impression. Adenosis and dense breasts may obscure an underlying neoplasm. False positive reports average 6 to 10%. Patient will receive a letter notifying them of these results.
== END ==
PROVIDERS: PCP Nurse Practitioner; Visit Provider Nurse Practitioner
DX: Z12.31 Encounter for screening mammogram for malignant neoplasm of breast (principal)
CPT/HCPCS: 77063; 77067

== ENCOUNTER 2023-08-31 11:40 | Outpatient (REF) | payer OTHER, SELFPAY ==
[2023-08-31 14:58] LABS: Source Nasal/Nares
[2023-08-31 16:19] LABS: COVID-19 PCR Negative (Negative)
== END 2023-08-31 11:41 | disposition home or self-care (01) ==
LOC: LBN 11:40
PROVIDERS: PCP Nurse Practitioner; Visit Provider Nurse Practitioner Adult Health
DX: J32.2 Chronic ethmoidal sinusitis (principal)
CPT/HCPCS: 87635

== ENCOUNTER 2023-09-16 05:29 | Outpatient (CLI) | payer OTHER, SELFPAY ==
[2023-09-16 07:54] LABS: ALT 30 U/L (14-59); AST 27 U/L (15-37); Albumin 3.6 g/dL (3.4-5.0); Alkaline Phosphatase 81 U/L (46-116); Anion Gap 7.6 mmol/L (3-11); BUN 18 mg/dL (7-18); Bilirubin, Total 0.4 mg/dL (0.2-1.0); CO2 29.4 mmol/L (21.0-32.0); CREATININE 1.1 mg/dL (0.55-1.02); Calculated LDL 166 mg/dL (<100); Chloride 100 mmol/L (98-107); Cholesterol 280 mg/dL (<200); Estimated GFR 56.11 (mL/min/1.73m2); Glucose 214 mg/dL (74-106); HDL Cholesterol 84 mg/dL (40-60); Potassium 4.3 mmol/L (3.5-5.1); Sodium 137 mmol/L (136-145); Total Protein 6.7 g/dL (6.4-8.2); Triglyceride 153 mg/dL (<150)
[2023-09-16 07:54] LABS: COMMENT (LAB VIEW ONLY) 73.15 mg/dL; Microalb ug/mg Crea 3.1 ug/mg Cr
== END 2023-09-16 05:30 | disposition home or self-care (01) ==
LOC: LBO 05:30
PROVIDERS: PCP Nurse Practitioner; Visit Provider Nurse Practitioner
DX: E10.9 Type 1 diabetes mellitus without complications (principal); E78.5 Hyperlipidemia, unspecified
CPT/HCPCS: 36415; 80053; 80061; 82043; 82570

== ENCOUNTER 2024-01-20 00:57 | Outpatient (CLI) | payer OTHER, SELFPAY ==
--- NOTE | 2024-01-20 07:15 | DI.MRI_ITS ---
Exam(s) MR LOWER JOINT RT WO EXAM: MR LOWER JOINT RT WO CLINICAL HISTORY: right knee pain for 3 mos, swelling,m25.561 TECHNIQUE: Multiplanar multisequence MRI of the knee was performed. COMPARISON: There are no plain films of the knee available time of this MRI interpretation. FINDINGS: EFFUSION: There is a small-moderate size knee joint effusion. There is no Valadez cyst in the poplitea l fossa. There are no loose intra-articular bodies evident MARROW:There is no evidence of fracture, bone contusion, nor osteochondral defects.. There are no si gnificant osseous lesions. PATELLOFEMORAL COMPARTMENT: The quadriceps tendon is intact. The patellar ligament is intact. There is relatively uniform moderate thinning of the retropatellar cartilage. There is no abnormal i ntraosseous signal within the posterior aspect of the patella. There are no osteochondral defects at this level.There is no intraosseous signal to suggest recent patellar dislocation. There are no molina llar retinacular tears. CRUCIATE LIGAMENTS: The anterior cruciate ligament is intact.There is mild increased intrasubstance s ignal evident within the superior aspect of the posterior cruciate ligament at its insertion on the i nner aspect of the medial condyle. This may represent partial tearing at this level. There is no fu ll-thickness tear evident. MEDIAL COMPARTMENT/MEDIAL MENISCUS: There is a thin tear on the undersurface of the posterior horn/james dy of the medial meniscus. Meniscal root is intact. There is no evidence of bucket-handle configura tion. The anterior horn of the medial meniscus appears intact. No flipped meniscal fragment evident . There is minimal thinning of the articular cartilage over the medial femoral condyle. There is no la rge chondral defects nor osteochondral defect in the medial compartment. No subarticular edema nor d egenerative subarticular cysts evident. There are no marginal osteophytes in the medial compartment. MEDIAL COLLATERAL LIGAMENT: Intact LATERAL COMPARTMENT/LATERAL MENISCUS: There is no evidence of lateral meniscal tear.There are no nitin dral defects, osteochondral defects, subarticular marrow edema, nor osteophytes evident. ILIOTIBIAL BAND: Intact LATERAL COLLATERAL LIGAMENT COMPLEX: The fibular collateral ligament is intact. The biceps femoris t endon is intact.Popliteus muscle and tendon are intact. IMPRESSION: 1. There is a thin oblique tear in the posterior horn of the medial meniscus. No bucket-handle confi guration or flipped meniscal fragments and the meniscal root appears intact. The tear does not appea r to extend into the anterior horn. There is minimal thinning of articular cartilage in the medial c ompartment. No subarticular bone edema. No osteochondral defects. No osteophytes. 2. No significant findings in the lateral compartment 3. Mild increased signal at the insertional aspect of the posterior cruciate ligament onto the inner aspect of the medial femoral condyle. No high-grade PCL tear. No evidence of ACL tear nor collatera l ligament tears. 4. There is relatively uniform moderate thinning of the retropatellar cartilage. No osteochondral de fects at this level. No abnormal intraosseous signal seen in the patella. DATA REPOSITORY:
== END 2024-01-20 01:17 ==
LOC: DI 00:57
PROVIDERS: PCP Nurse Practitioner; Visit Provider Nurse Practitioner
DX: M25.561 Pain in right knee (principal)
CPT/HCPCS: 73721

== ENCOUNTER 2024-05-05 02:55 | Outpatient (CLI) | payer OTHER, SELFPAY ==
--- NOTE | 2024-05-05 07:58 | DI.DEXA_ITS ---
Exam(s) XR DEXA BONE DENSITY W/WO VIRIDIANA EXAM: XR DEXA BONE DENSITY W/WO VIRIDIANA CLINICAL HISTORY: SCREENING FOR OSTEOPOROSIS IN POSTMENOPAUSAL STATE,Z78.0 TECHNIQUE: [employer] C densitometer analysis of left hip, lumbar spine and left forearm. Lat eral survey image of the thoracic and lumbar spine. COMPARISON: No exams were available for comparison FINDINGS: Lateral view of the thoracic and lumbar spine shows no evidence of compression fractures. Bone mineral density measurements of the lumbar spine correspond to a total T-score of -1.5, in the osteopenic range Bone mineral density measurements of the left hip correspond to a total T-score of -0.5. The femora l neck T-score is -0.8, in the normal range.. Theleft forearm bone mineral density measurements correspond to a T-score of the distal 3rd of -2.0, in the osteopenic range.. IMPRESSION: Osteopenia of the spine and forearm. Normal bone mineral density of the hip.
--- NOTE | 2024-05-05 15:23 | DI.MAMMO_ITS ---
Exam(s) MAMMO SCREENING EXAM: MAMMO SCREENING CLINICAL HISTORY: screening,Z12.39. TECHNIQUE: Bilateral full field digital CC and MLO mammographic images were obtained with 3D tomosyn thesis and utilizing computer aided detection (CAD). COMPARISON: Prior mammograms were reviewed. FINDINGS: There has been no significant change in the appearance and distribution of the fibroglandular tissue. Asymmetric nodular density seen bilaterally are unchanged from mammograms dating back to 2015 and the refore benign. There are no new spiculated masses nor new malignant appearing microcalcification groups. There is no significant architectural distortion nor skin thickening-retraction. IMPRESSION: Stable benign-appearing findings. No radiographic evidence of malignancy. BI-RADS Category 2 - Benign Findings Breast Density - Category B - Scattered areas of fibroglandular density Breast density Category C or D implies that the patient has dense breast tissue. Dense breast tissue can make it harder to find cancer on a mammogram. Dense breast tissue is also associated with an incr eased risk of breast cancer. This information about the result of the mammogram report was provided to the patient to raise their awareness. Use this report when you speak with the patient about their risks for breast cancer, which includes their family history. At that time, you may recommend additional screening tests (Ultrasoun d or MRI) as these tests may add significant information. A negative radiographic report should not delay biopsy if a dominant or clinically suspicious mass is present. Up to ten percent of cancers are not identified on mammography. A negative report may reinforce clinical impression. Adenosis and dense breasts may obscure an underlying neoplasm. False positive reports average 6 to 10%. Patient will receive a letter notifying them of these results.
== END 2024-05-05 03:15 ==
LOC: DI 02:55
PROVIDERS: PCP Nurse Practitioner; Visit Provider Nurse Practitioner
DX: Z78.0 Asymptomatic menopausal state (principal); Z12.31 Encounter for screening mammogram for malignant neoplasm of breast; Z13.820 Encounter for screening for osteoporosis; M85.89 Other specified disorders of bone density and structure, multiple sites
CPT/HCPCS: 77063; 77067; 77080